=== PATIENT | male | born 1965 | race Caucasian/White ===

== ENCOUNTER 2017-07-18 10:23 | Emergency (ER) | payer BC, OTHER ==
[2017-07-18 10:59] VITALS: BP 129/88
--- NOTE | 2017-07-18 11:29 | UC ---
Respiratory Complaint HPI - HPI Summary HPI Summary: cough, left chest pain started a few days ago. it is constant and made worse with coughing not with deep breaths. no fever. the cough is improving. production is white and clear. no hemoptysis or brown. - History of Current Complaint Chief Complaint: UCChestPain Stated Complaint: CHEST CONGESTION Time Seen by Provider: 07/18/17 11:12 Hx Obtained From: Patient Onset/Duration: Gradual Onset, Lasting Days Timing: Constant Severity Initially: Mild Severity Currently: Moderate Character: Cough: Productive Aggravating Factors: Nothing - cough. Alleviating Factors: Nothing Associated Signs And Symptoms: Positive: URI, Nasal Congestion. Negative: Dyspnea, Fever, Chills, Pleuritic Chest Pain, Wheezing, Hemoptysis, Calf Pain, Calf Swelling - Risk Factors Pulmonary Embolism Risk Factors: Smoking - Allergies/Home Medications Allergies/Adverse Reactions: Allergies Allergy/AdvReac Type Severity Reaction Status Date / Time No Known Allergies Allergy Verified 07/18/17 10:59 Home Medications: Home Medications Lisinopril/HCTZ 20/12.5(NF) [Zestoretic 20/12.5(NF)] 1 tab PO DAILY 07/18/17 [ History Confirmed 07/18/17] Omeprazole CAP* [Prilosec CAP* 20 MG] 20 mg PO DAILY 07/18/17 [History Confirmed 07/18/17] PMH/Surg Hx/FS Hx/Imm Hx Previously Healthy: No - asthma. no prior pe or cardiac disease. - Surgical History Surgical History: Yes Surgery Procedure, Year, and Place: Bilat inguinal hernia repair 04/02/2017. Vein stripping x3 - Family History Known Family History: Positive: Other - no pe. - Social History Occupation: Employed Full-time Alcohol Use: Weekly Alcohol Amount: 6 pack on the weekends, hx ETOH abuse Substance Use Type: None Smoking Status (MU): Heavy Every Day Tobacco Smoker Amount Used/How Often: 1 - 1.5 ppd Length of Time of Smoking/Using Tobacco: started age 17 Review of Systems Respiratory: Cough All Other Systems Reviewed And Are Negative: Yes Physical Exam Triage Information Reviewed: Yes Appearance: Well-Appearing, No Pain Distress, Well-Nourished Vital Signs: Initial Vital Signs Temp 97.8 F 07/18/17 10:46 Pulse 61 07/18/17 10:46 Resp 16 07/18/17 10:46 BP 129/88 07/18/17 10:46 Pulse Ox 97 07/18/17 10:46 Vital Signs Reviewed: Yes Eye Exam: Normal ENT Exam: Normal Neck exam: Normal Respiratory Exam: Normal Respiratory: Positive: Other: - Neg hyperressonance to percussion. great breath sounds and air movement abdulaziz. no rales. there is pin point tenderness of the left lateral chest. Cardiovascular Exam: Normal - HR 75 Abdominal Exam: Normal Musculoskeletal Exam: Normal Musculoskeletal: Positive: Other: - neg homans. abdulaziz.. Negative: Edema @ Neurological Exam: Normal Psychological Exam: Normal Skin Exam: Normal UC Diagnostic Evaluation - Laboratory O2 Sat by Pulse Oximetry: 97 Respiratory Course/Dx - Course Course Of Treatment: Left chest pain worse withi cough and reproducible without worsening with exertion. it is constant. this is not c/w cardiac etiology. EKG wnl. no clinical signs of pneumonia. No clinical signs of dvt or pe and he denies sob. there is no tachycardia. no signs clinincally of pneumothorax for the same reasons and no hyperressonnance to percussion. - Differential Dx/Diagnosis Differential Diagnosis/HQI/PQRI: Foreign Body, Aspiration, Asthma, Bronchitis, CHF, Pulmonary Edema, Lower Resp Infection, Pneumothorax, Pulmonary Embolism, Sinusitis, Tuberculosis Provider Diagnoses: costocondritis. acute bronchitis. Discharge - Discharge Plan Condition: Good Disposition: HOME Prescriptions: Azithromyxin CEM (NF) [Z-Cem (Zithromax) 250 mg tabs #6] 2 tab PO DAILY #6 tab Patient Education Materials: Costochondritis (ED), Acute Bronchitis (ED) Referrals: Logan Garcia MD [Primary Care Provider] - If Needed
== END 2017-07-18 11:44 | disposition home or self-care (01) ==
LOC: UCCORT 10:23
DX: J20.9 Acute bronchitis, unspecified (principal); R05 Cough; F17.210 Nicotine dependence, cigarettes, uncomplicated; M94.0 Chondrocostal junction syndrome [Tietze]
CPT/HCPCS: 93005; 99202; G0463